=== PATIENT | female | born 2005 | race Caucasian/White ===

== ENCOUNTER → 2024-09-10 09:10 | Outpatient (CLI) | payer OTHER, SELFPAY ==
[2024-09-10 15:02] LABS: Urine N gonorrhoeae NOT DETECTED
[2024-09-10 15:11] LABS: Urine Chlamydia DETECTED
== END ==
PROVIDERS: Visit Provider Student in an Organized Health Care Education/Training Program
DX: Z11.3 Encounter for screening for infections with a predominantly sexual mode of transmission (principal)
CPT/HCPCS: 87491; 87591

== ENCOUNTER 2024-10-01 10:11 | Emergency (ER) | payer OTHER, SELFPAY ==
--- NOTE | 2024-10-01 10:15 | EKG_ITS ---
[address] [address] Test Date: 2024-10-01 Pat Name: Pamela Martinez Department: Room: Gender: Female Computer Applications Instructor: TSERING : 2005 Requested By: Order Number: [id number] Reading MD: Davion Morales MD Measurements Intervals [place] Rate: 60 P: 44 OR: 144 QRS: 44 QRSD: 72 T: 31 QT: 426 QTc: 426 Interpretive Statements Normal sinus rhythm Electronically Signed On 10-02-2024 6:50:21 PST by Davion Morales MD
[2024-10-01 10:19] VITALS: BP 119/73; PULSE 67; RESP 18; TEMP 36.2; O2SAT 100
[2024-10-01 10:24] VITALS: PULSE 65; RESP 17; O2SAT 100
[2024-10-01 10:28] LABS: Add Manual Diff / Slide Review NO; Basophils Absolute Auto 0 /uL (0-100); Basophils Percent Auto 0.3 % (0-2); Eosinophils Absolute Auto 200 /uL (0-450); Eosinophils Percent Auto 3.2 % (2-4); Hematocrit 33.9 % (36-46); Hemoglobin 11.2 g/dL (12.0-16.0); Lymphocytes Absolute Auto 1900 /uL (1100-4500); Lymphocytes Percent Auto 31.4 % (25-40); Mean Corpuscular HGB Conc 33.2 % (30-36); Mean Corpuscular Hemoglobin 27.2 PG (26-34); Mean Corpuscular Volume 81.7 fL (80-100); Monocytes Absolute Auto 400 /uL (0-900); Neutrophils Absolute Auto 3600 /uL (1500-7000); Neutrophils Percent Auto 59.1 % (50-75); Platelet Count 199 X10^3/uL (150-400); Red Blood Cell Count 4.14 X10^6/uL (4.0-5.2); Red Cell Distribution Width 15.9 % (11.6-14.8); White Blood Cell Count 6.1 X10^3/uL (4.5-11.0)
[2024-10-01 10:30] VITALS: BP 107/61; PULSE 62; RESP 13; O2SAT 100
[2024-10-01 10:40] LABS: BUN Creatinine Ratio 13.8 (6-22); Blood Urea Nitrogen 8 mg/dL (7-17); Calcium 9.3 mg/dL (8.4-10.2); Carbon Dioxide 24 mmol/L (22-32); Chloride 107 mmol/L (98-107); Estimated Glomerular Filt Rate > 60 mL/min (>60); Glucose 72 mg/dL (70-100); HEMOLYSIS < 15 (0-50); Potassium 3.7 mmol/L (3.4-5.1); Sodium 138 mmol/L (137-145)
--- NOTE | 2024-10-01 10:52 | ED_ITS ---
HPI - Chest Pain General Chief Complaint: Chest Pain Stated Complaint: Mild Chest pain , Has SVT Time Seen by Provider: 10/01/24 10:15 Source: patient Mode of arrival: Ambulatory Limitations: no limitations History of Present Illness HPI narrative: Patient is a 19-year-old female. She was a at approximately 11 weeks EGA. She has a 4-1/2-month-old child at home. She states during her 1st she had episodes of SVT. She was also found to be anemic. During her 1st she was she had what sounds like an echocardiogram and was told that she ?had a problem with 1 of her heart valves? she stated that there was supposed to be more workup after her ended however she became once again. She was here for evaluation of having palpitations and lightheadedness specifically with standing. He has been worsening over the past couple days. Does report some mild chest pain with the symptoms. She does take metoprolol on a daily basis. She has a follow-up with her OB provider in approximately 1 week. Related Data Home Medications Medication Instructions Recorded Confirmed [id number] 400 mcg-om3 35 mg-dha 25 tab PO 09/06/24 09/10/24 mg-epa 5 mg-fish oil chewable tablet ferrous sulfate 325 mg (65 mg 325 mg PO BID 09/06/24 09/10/24 iron) tablet (Feosol) metoprolol tartrate 25 mg tablet 25 mg PO DAILY 09/06/24 09/10/24 Previous Rx's Medication Instructions Recorded azithromycin 1 gram oral packet 1 g PO ONCE #1 ea 09/10/24 Allergies Allergy/AdvReac Type Severity Reaction Status Date / Time No Known Drug Allergies Allergy Unverified 09/10/24 08:20 Review of Systems Review of Systems ROS Unobtainable: All systems reviewed & are unremarkable except as noted in HPI and below Patient History Medical History History of third degree perineal laceration hemorrhage Asthma Surgical History (Updated 09/06/24 @ 14:35 by Rosa Lynch RN) No pertinent past surgical history Family History (Updated 09/06/24 @ 14:38 by Rosa Lynch RN) Father Diabetes mellitus Gout Grandmother Diabetes mellitus Mother Uterine cancer Heart attack Adopted Brother Epilepsy Aunt Diabetes mellitus Social History marital status: number of children: 1 household members: spouse and children lives independently: Yes caregiver/support person: Yes housing: apartment pets and animals: Yes (dog) education level: college (some college) occupational status: unemployed current occupational exposures/hazards: No special axel needs: No travel history: recent (domestic only) seatbelt use: always water heater temp set < 120 deg: Yes working smoke detector in home: Yes fire extinguisher in home: Yes carbon monox detector in home: Yes firearms in home: No do you feel safe at home: Yes Smoking Status: Never smoker second hand exposure: Yes ( vapes outside) alcohol intake: former (~1-2/week when not ) during the past year weight has: other (baby only 4 months old) well-balanced diet: daily or most days daily servings fruits/ve or more times/day caffeine: No Type(s) of exercise: walking frequency: daily Smoking Status: Never smoker Exam Initial Vital Signs Initial Vital Signs: Vital Signs Temperature 97.2 F L 10/01/24 10:19 Pulse Rate 67 10/01/24 10:19 Respiratory Rate 18 10/01/24 10:19 Blood Pressure 119/73 10/01/24 10:19 Pulse Oximetry 100 10/01/24 10:19 Oxygen Delivery Method Room Air 10/01/24 10:19 Const General: cooperative, comfortable and No ill appearing HENMT Head: normal to inspection and normocephalic Resp Effort & Inspection: normal respiratory effort Auscultation: clear to auscultation bilaterally Cardio Rate: regular rate Rhythm: regular rhythm GI Inspection: normal to inspection and non-distended Skin General: no rashes or lesions noted Neuro General: patient alert, patient awake and moves all extremities Extrem General: capillary refill normal Course Orders Ordered: ED Orders 10/01/24 10:15 EKG-12 Lead Stat 10/01/24 10:20 Basic Metabolic Panel Stat Complete Blood Count AUTO DIFF Stat Vital Signs Vital signs: Vital Signs - 8 hr 10/01/24 10:19 10/01/24 10:24 10/01/24 10:30 Temperature 97.2 F L Pulse Rate 67 65 Respiratory Rate 18 17 Blood Pressure 119/73 107/61 Pulse Oximetry 100 100 Oxygen Delivery Method Room Air 10/01/24 10:30 10/01/24 11:00 10/01/24 11:00 Temperature Pulse Rate 62 64 Respiratory Rate 13 15 Blood Pressure 112/69 Pulse Oximetry 100 97 Oxygen Delivery Method MDM - Chest Pain Lab Data Attestation: I reviewed the patient's lab results. 10/01/24 10:20 10/01/24 10:20 Labs: Lab Results 10/01/24 Range/Units 10:20 WBC 6.1 (4.5-11.0) X10^3/uL RBC 4.14 (4.0-5.2) X10^6/uL Hgb 11.2 L (12.0-16.0) g/dL Hct 33.9 L (36-46) % MCV 81.7 (80-100) fL MCH 27.2 (26-34) PG MCHC 33.2 (30-36) % RDW 15.9 H (11.6-14.8) % Plt Count 199 (150-400) X10^3/uL Neut % (Auto) 59.1 (50-75) % Lymph % (Auto) 31.4 (25-40) % [place] % (Auto) 6.0 (3-14) % Eos % (Auto) 3.2 (2-4) % Baso % (Auto) 0.3 (0-2) % Neut # (Auto) 3600 (9579-1911) /uL Lymph # (Auto) 1900 (0743-0239) /uL [place] # (Auto) 400 (0-900) /uL Eos # (Auto) 200 (0-450) /uL Baso # (Auto) 0 (0-100) /uL Sodium 138 (137-145) mmol/L Potassium 3.7 (3.4-5.1) mmol/L Chloride 107 (98-107) mmol/L Carbon Dioxide 24 (22-32) mmol/L BUN 8 (7-17) mg/dL Creatinine 0.58 (0.52-1.04) mg/dL Estimated GFR > 60 (>60) mL/min BUN/Creatinine Ratio 13.8 (6-22) Glucose 72 (70-100) mg/dL Calcium 9.3 (8.4-10.2) mg/dL ECG Data Attestation: I personally reviewed and interpreted this ECG as follows: Interpretation: Sinus rhythm Ventricular rate is 60 Normal axis Normal QRS Normal QTC No ST T wave changes MDM Narrative Medical decision making narrative: Patient was technically anemic however not in any particular level that would make me concerned about a blood transfusion and also not a level where I would state that it was what is causing her lightheadedness. She was sinus rhythm here in the EKG. She was on metoprolol 25 mg that she takes at night because it makes her sleepy. She ambulated around the emergency department without becoming tachycardic or lightheaded. She has a follow-up with her OB doctor in 1 week from now. Recommended that she keep that appointment and discuss with her primary doctor about potentially increasing her metoprolol or getting a Holter monitor. She will continue with her vitamins and iron supplements. She was given return precautions. She expressed understanding and agreement Discharge Plan Departure Patient Disposition: Home Clinical Impression: Palpitations Instructions: DI for Palpitations Activity Restrictions/Additional Instructions: Recommend that you continue to take all of your medications as directed to include a vitamins and your iron supplements. Keep your appointment with your OB provider scheduled for 1 week from now. Talk with your OB provider about the indications for a Holter monitor or if you should change any of your medications. Return to the emergency department for new symptoms. Prescriptions: No Action azithromycin 1 gram packet 1 g PO ONCE Qty: 1 0RF [id number] oil 400 mcg-35 mg -25 mg-5 mg tablet,chewable PO ferrous sulfate [Feosol] 325 mg (65 mg iron) tablet 325 mg PO BID metoprolol tartrate 25 mg tablet 25 mg PO DAILY Referrals: ProviderАнна [Primary Care Provider] - Stand Alone Forms: Patient Portal/API/Survey
[2024-10-01 11:00] VITALS: BP 112/69; PULSE 64; RESP 15; O2SAT 97
--- NOTE | 2024-10-01 11:01 | PC.NURSE ---
Pt ambulated around unit on monitors with RN, pt reports no new symptoms. HR in 90s while ambulating
[2024-10-01 11:26] VITALS: PULSE 64; RESP 18; TEMP 36.4; O2SAT 99
== END 2024-10-01 11:27 | disposition home or self-care (01) ==
PROVIDERS: Emergency Provider Emergency Medicine
DX: O26.891 Other specified pregnancy related conditions, first trimester (principal); R00.2 Palpitations; Z3A.11 11 weeks gestation of pregnancy
CPT/HCPCS: 36415; 80048; 85025; 93005; 93010; 99283; 99284

== ENCOUNTER → 2024-10-09 15:37 | Outpatient (CLI) | payer OTHER, SELFPAY ==
[2024-10-09 16:37] LABS: Add Manual Diff / Slide Review NO; Basophils Absolute Auto 0 /uL (0-100); Basophils Percent Auto 0.2 % (0-2); Eosinophils Absolute Auto 200 /uL (0-450); Eosinophils Percent Auto 3.1 % (2-4); Hematocrit 30.7 % (36-46); Hemoglobin 10.4 g/dL (12.0-16.0); Lymphocytes Absolute Auto 1900 /uL (1100-4500); Lymphocytes Percent Auto 31.1 % (25-40); Mean Corpuscular Hemoglobin 27.7 PG (26-34); Mean Corpuscular Volume 81.5 fL (80-100); Monocytes Absolute Auto 400 /uL (0-900); Monocytes Percent Auto 6.1 % (3-14); Neutrophils Absolute Auto 3700 /uL (1500-7000); Neutrophils Percent Auto 59.5 % (50-75); Platelet Count 198 X10^3/uL (150-400); Red Blood Cell Count 3.77 X10^6/uL (4.0-5.2); Red Cell Distribution Width 15.3 % (11.6-14.8); White Blood Cell Count 6.3 X10^3/uL (4.5-11.0)
[2024-10-09 16:51] LABS: Natera Collection Specimen Collected
[2024-10-09 18:09] LABS: Urine N gonorrhoeae NOT DETECTED
[2024-10-09 18:21] LABS: Urine Chlamydia NOT DETECTED
[2024-10-11 05:13] LABS: RPR Screen Non Reactive (Non Reactive)
[2024-10-11 13:39] LABS: Varicella IgG Antibody Non Reactive (Non Reactive)
[2024-10-11 15:34] LABS: Hepatitis B Surface Antigen NEGATIVE s/c (NEGATIVE); Rubella Antibody IgG 9.1 IU/mL (>15)
[2024-10-11 15:50] LABS: HIV 1 & 2 Ab/Ag 4th Gen Combo NEGATIVE (NEGATIVE); Hep C Virus Ab w/Reflex Quant NEGATIVE s/c (NEGATIVE)
== END ==
PROVIDERS: Referring Provider Student in an Organized Health Care Education/Training Program; Visit Provider Student in an Organized Health Care Education/Training Program
DX: O98.819 Other maternal infectious and parasitic diseases complicating pregnancy, unspecified trimester (principal); A74.9 Chlamydial infection, unspecified; Z36.0 Encounter for antenatal screening for chromosomal anomalies
CPT/HCPCS: 36415; 80055; 86787; 86803; 86850; 86900; 86901; 87086; 87389; 87491; 87591

== ENCOUNTER → 2024-10-11 13:34 | Outpatient (CLI) | payer OTHER, SELFPAY | PROVIDERS: Referring Provider Student in an Organized Health Care Education/Training Program; Visit Provider Student in an Organized Health Care Education/Training Program | DX: Z86.79 Personal history of other diseases of the circulatory system (principal); R00.2 Palpitations; R42 Dizziness and giddiness | CPT/HCPCS: 93246; 93248 ==

== ENCOUNTER → 2024-12-06 07:39 | Outpatient (CLI) | payer OTHER, SELFPAY ==
--- NOTE | 2024-12-06 07:40 | DI.US.S_ITS ---
PROCEDURE: US OB >= 14 WEEKS FETUS INDICATIONS: 20 week anatomy scan OUTSIDE/PRIOR DATING DATA: Last menstrual period (LMP): 07/15/2024. LMP-based estimated date of delivery (ELAINA): 04/21/2025 First dating scan (date and location): 09/10/2024. Estimated date of delivery (ELAINA) from first dating scan: 04/21/2025. The calculations are made using the working ELAINA of 04/21/2025. TECHNIQUE: Real-time scanning was performed of the fetus, with image documentation and biometric measurements. Endovaginal scanning: No COMPARISON: None. FINDINGS: General: A single living intrauterine gestation is present. Presentation: Vertex. Placenta: Placental position is anterior , without previa. Amniotic fluid index: 9.8 cm, normal range is 5-24 cm. Single deepest vertical pocket is 3.1 cm. heart rate: 51-135 beats per minute. Maternal cervical canal: 3.7 cm long. Normal lower limit is 2.5 cm. biometrics: Biparietal diameter: 4.5 cm, 19 week 4 day Head circumference: 16.8 cm, 19 week 3 day Abdominal circumference: 14.6 cm, 19 week 6 day Femur length: 3.1 cm, 19 week 4 day Clinically estimated gestational age: 19 week 4 day Composite gestational age from present scan: 20 week 4 day Estimated weight and percentile: 308 g, 10 percentile Anatomic survey: Neuro: Ventricles are non-dilated at less than 10 mm. Cisterna magna is normal at 3-11 mm. Cerebellum is normal in size and morphology. Nuchal skin fold: Normal at less than 6 mm between 14-21 weeks gestational age. Face: Nose and lips, facial profile are normal. Spine: No evidence for spina bifida. Heart: 4-chambered heart is present, with normal ventricular outflow tracts. Diaphragm: Diaphragm is intact. Stomach: Left-sided stomach is present. Kidneys: No hydronephrosis. Normal is less than 5 mm in 2nd trimester, less than 7 mm in 3rd trimester. Cord: 3-vessel cord has orthotopic insertion. Bladder: Normal in size. Extremities: All 4 extremities identified. IMPRESSION: Single live intrauterine consistent with 20 week 4 day gestation by current ultrasound EFW 308 g, 10th percentile Episodic bradycardia down to 51 beats per minute Approved by: Tim Butler M.D. on 12/06/2024 at 18:18
== END ==
PROVIDERS: Referring Provider Student in an Organized Health Care Education/Training Program; Visit Provider Student in an Organized Health Care Education/Training Program
DX: Z34.82 Encounter for supervision of other normal pregnancy, second trimester (principal); Z3A.20 20 weeks gestation of pregnancy
CPT/HCPCS: 76811

== ENCOUNTER → 2025-01-16 09:07 | Outpatient (CLI) | payer OTHER, SELFPAY ==
[2025-01-16 11:17] LABS: Hematocrit 25.7 % (36-46); Hemoglobin 8.5 g/dL (12.0-16.0)
[2025-01-16 11:29] LABS: HEMOLYSIS < 15 (0-50); Iron 31 ug/dL (37-170)
[2025-01-16 11:30] LABS: GTT (PREG) 1 Hour PP 50gm Dose 102 mg/dL (76-139)
[2025-01-16 11:39] LABS: Percent Iron Saturation 6 % (15-50); Total Iron Binding Capacity 494 ug/dL (265-497); Transferrin 427 mg/dL (206-381)
[2025-01-16 12:05] LABS: Ferritin 4 ng/mL (6-137)
[2025-01-16 12:31] LABS: Urine N gonorrhoeae NOT DETECTED
[2025-01-16 12:35] LABS: Urine Chlamydia NOT DETECTED
== END ==
PROVIDERS: Referring Provider Student in an Organized Health Care Education/Training Program; Visit Provider Student in an Organized Health Care Education/Training Program
DX: O98.819 Other maternal infectious and parasitic diseases complicating pregnancy, unspecified trimester (principal); Z13.0 Encounter for screening for diseases of the blood and blood-forming organs and certain disorders involving the immune mechanism; O99.019 Anemia complicating pregnancy, unspecified trimester; Z13.1 Encounter for screening for diabetes mellitus; A74.9 Chlamydial infection, unspecified
CPT/HCPCS: 36415; 82728; 82950; 83540; 83550; 85014; 85018; 87491; 87591

== ENCOUNTER → 2025-02-26 11:17 | Outpatient (CLI) | payer OTHER, SELFPAY ==
[2025-02-26 12:10] LABS: Add Manual Diff / Slide Review NO; Basophils Absolute Auto 0 /uL (0-100); Basophils Percent Auto 0.2 % (0-2); Eosinophils Absolute Auto 300 /uL (0-450); Eosinophils Percent Auto 3.2 % (2-4); Hematocrit 33.2 % (36-46); Lymphocytes Absolute Auto 1800 /uL (1100-4500); Lymphocytes Percent Auto 19.7 % (25-40); Mean Corpuscular HGB Conc 33.1 % (30-36); Mean Corpuscular Hemoglobin 28.1 PG (26-34); Monocytes Absolute Auto 500 /uL (0-900); Monocytes Percent Auto 5.3 % (3-14); Neutrophils Absolute Auto 6600 /uL (1500-7000); Neutrophils Percent Auto 71.6 % (50-75); Platelet Count 143 X10^3/uL (150-400); White Blood Cell Count 9.2 X10^3/uL (4.5-11.0)
[2025-02-26 12:22] LABS: Anisocytosis 1+
== END ==
PROVIDERS: Referring Provider Obstetrics & Gynecology; Visit Provider Obstetrics & Gynecology
DX: O99.019 Anemia complicating pregnancy, unspecified trimester (principal)
CPT/HCPCS: 36415; 85025

== ENCOUNTER → 2025-03-12 08:54 | Outpatient (CLI) | payer OTHER, SELFPAY | PROVIDERS: Visit Provider Student in an Organized Health Care Education/Training Program | DX: O99.019 Anemia complicating pregnancy, unspecified trimester (principal); R39.9 Unspecified symptoms and signs involving the genitourinary system | CPT/HCPCS: 87086 ==

== ENCOUNTER → 2025-03-12 09:10 | Outpatient (CLI) | payer OTHER, SELFPAY ==
[2025-03-12 10:14] LABS: Add Manual Diff / Slide Review NO; Basophils Absolute Auto 0 /uL (0-100); Basophils Percent Auto 0.3 % (0-2); Eosinophils Absolute Auto 200 /uL (0-450); Eosinophils Percent Auto 2.8 % (2-4); Hematocrit 31.6 % (36-46); Hemoglobin 10.7 g/dL (12.0-16.0); Lymphocytes Absolute Auto 1500 /uL (1100-4500); Lymphocytes Percent Auto 19.8 % (25-40); Mean Corpuscular HGB Conc 33.9 % (30-36); Mean Corpuscular Hemoglobin 28.7 PG (26-34); Mean Corpuscular Volume 84.7 fL (80-100); Monocytes Absolute Auto 400 /uL (0-900); Neutrophils Absolute Auto 5400 /uL (1500-7000); Neutrophils Percent Auto 72.1 % (50-75); Platelet Count 122 X10^3/uL (150-400); Red Blood Cell Count 3.73 X10^6/uL (4.0-5.2); Red Cell Distribution Width 21.4 % (11.6-14.8); White Blood Cell Count 7.5 X10^3/uL (4.5-11.0)
[2025-03-12 10:24] LABS: Anisocytosis 1+
[2025-03-12 10:54] LABS: Transferrin 398 mg/dL (206-381)
[2025-03-12 11:24] LABS: Ferritin 24 ng/mL (6-137)
== END ==
PROVIDERS: Referring Provider Student in an Organized Health Care Education/Training Program; Visit Provider Student in an Organized Health Care Education/Training Program
DX: O99.019 Anemia complicating pregnancy, unspecified trimester (principal); R39.9 Unspecified symptoms and signs involving the genitourinary system
CPT/HCPCS: 36415; 82728; 84466; 85025; 87086

== ENCOUNTER → 2025-03-26 09:34 | Outpatient (CLI) | payer OTHER, SELFPAY ==
[2025-03-27 13:31] LABS: Strep Grp B PCR NEG for Grp B Strep
[2025-03-28 14:09] LABS: Candida species Positive (Negative); Gardnerella vaginalis Positive (Negative); Trichomoas vaginalis Negative (Negative)
== END ==
PROVIDERS: Visit Provider Student in an Organized Health Care Education/Training Program
DX: Z36.85 Encounter for antenatal screening for Streptococcus B (principal); N89.8 Other specified noninflammatory disorders of vagina
CPT/HCPCS: 87480; 87510; 87653; 87660

== ENCOUNTER 2025-04-12 18:23 | Observation (INO) | payer OTHER, SELFPAY ==
--- NOTE | 2025-04-12 21:13 | PM.OBTRLD ---
Visit Information Visit Information Date of evaluation: 04/12/25 Primary OB Provider: Nancy Johnson On-call OB Provider: Nancy Johnson Reason for Evaluation: Yes rule out labor Comments/Additional reasons for admission: Pt came in painfully [place]. Denied leaking fluid or vaginal bleeding. Vital Signs Vital Signs: BP 121/64; P 99; T 36.2 [facility] Medical History (Updated 04/12/25 @ 21:16 by Nancy Johnson DO) Cystic fibrosis carrier Scoliosis SVT (supraventricular tachycardia) History of third degree perineal laceration hemorrhage Asthma Surgical History (Updated 09/06/24 @ 14:35 by Rosa Lynch, RN) No pertinent past surgical history Family History (Updated 09/06/24 @ 14:38 by Rosa Lynch RN) Father Diabetes mellitus Gout Grandmother Diabetes mellitus Mother Uterine cancer Heart attack Adopted Brother Epilepsy Aunt Diabetes mellitus Social History marital status: number of children: 1 household members: spouse and children lives independently: Yes caregiver/support person: Yes housing: apartment pets and animals: Yes (dog) education level: college (some college) occupational status: unemployed current occupational exposures/hazards: No special axel needs: No travel history: recent (domestic only) seatbelt use: always water heater temp set < 120 deg: Yes working smoke detector in home: Yes fire extinguisher in home: Yes carbon monox detector in home: Yes firearms in home: No do you feel safe at home: Yes second hand exposure: Yes ( vapes outside) alcohol intake: former (~1-2/week when not ) during the past year weight has: other (baby only 4 months old) well-balanced diet: daily or most days daily servings fruits/ve or more times/day caffeine: No Type(s) of exercise: walking frequency: daily Review of Systems Review of Systems ROS: Yes All systems reviewed with the patient and are negative except as otherwise documented Exam Const General: comfortable and No acute distress Resp Effort & Inspection: normal respiratory effort and able to speak in complete sentences Neuro Cognition: normal cognition Speech: speech normal Psych Mood: congruent mood Affect: normal affect Evaluation Evaluation Baseline heart rate: 125 Variability: Moderate (6-25) monitor accelerations: Present Monitor Decelerations: Absent Contraction Frequency (minutes): 5 Category of Tracing: Reactive Cervical dilation (cm): 3 Cervical effacement (%): 60 station: -3 Diagnosis, Plan/Disposition Final Diagnosis (1) False labor after 37 completed weeks of gestation: Status: Acute (2) 38 weeks gestation of : Status: Acute Plan/Disposition Plan: 19yo at 38+5wks presented to triage for rule-out labor. Patient remained unchanged after 2hrs. -discharged to home, with plan for IOL next week OB Disposition: home
== END 2025-04-12 21:05 | disposition home or self-care (01) ==
LOC: LABOR 18:25
PROVIDERS: Admitting Provider Student in an Organized Health Care Education/Training Program; Referring Provider Student in an Organized Health Care Education/Training Program; Visit Provider Student in an Organized Health Care Education/Training Program
DX: O47.1 False labor at or after 37 completed weeks of gestation (principal); Z3A.38 38 weeks gestation of pregnancy
CPT/HCPCS: 59025; G0378; G0379

== ENCOUNTER 2025-04-16 06:31 | Inpatient (IN) | payer OTHER, SELFPAY ==
--- NOTE | 2025-04-16 08:01 | P.HPOB_ITS ---
OB HPI Date/Time Date of admission: 04/16/25 Date Patient Seen: 04/16/25 Time Patient Seen: 07:45 History of Present Condition Chief complaint: INDUCTION ELAINA Calculator 2 Estimated Delivery Date Method Current WG Current Estimate 04/21/25 LMP (Certain) 39w 2d Other Estimates 04/24/25 Ultrasound #1 38w 6d : 2 Para: 1 Narrative: 19-year-old at 39 +2 weeks' presenting today for induction of labor due to multiple risk factors. She is continued to have painful contractions over the weekend, denies leaking fluid or vaginal bleeding. Is feeling regular movement. 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--> [ ] FOB testing (patient reports negative, need records) SVT--> on metoprolol, reports increased episodes during last (has never been cardioverted or received adenosine); ER visit for palpitations [ x] Zio patch- neg; seen by MFM (see consult notes regarding SVT) Chlamydia in --> tx'd at 8wks EGA; [ x] CHAI at 12wks- neg; [ x] rescreen 3rd trimester- NEG Anemia--> on oral iron supplement; [ x] repeat 28wks with ferritin/iron (8.5/25.7, low iron); [x] iron infusions; [ x] repeat CBC 32wks; [x ] scheduled for 2nd round IV iron EFW 10%ile at anatomy with intermittent bradycardia--> [x ] MFM referral; normal growth 01/01/25 at [facility]; follow-up growth sonos scheduled with MFM (NORMAL) Hx of 3rd degree perineal laceration--> [x ] discuss option of primary (discussed 03/12) Hx of macrosomia with PPH (received transfusion) Rubella nonimmune Close interval --> last delivery 04/2024, not [place] (active duty, 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) Assigned to Alex Indications Indication for induction OB: medical complication Preadmission Labs Last OB Lab Results: 2 Blood Type A Positive 10/09/24, 15:51 Antibody Screen Negative 10/09/24, 15:51 Hct, (36-46) 34.2 % L Today, 07:40 Hgb, (12.0-16.0) 11.7 g/dL L Today, 07:40 Hep Bs Antigen, (NEGATIVE) Negative s/c 10/09/24, 15: 51 Hepatitis C Antibody, (NEGATIVE) Negative s/c 4, 15:51 Rubella Antibody, (>15) 9.1 IU/mL L 10/09/24, 15:51 VZV IgG Antibody, (Non Reactive) Non reactive 4, 15:51 Glucose 1 Hr 50 gm, (76-139) 102 mg/dL 01/16/25, 1 0:31 Group B Strep (PCR) Neg for grp b strep 03/26/25, 09:34 Glucose Tolerance Testin hr (negative) -: Chlamydia screen: negative, Gonorrhea screen: negative and Urine: negative -: PAP smear: Normal Genetic Screens: Cell-free DNA: Normal External Labs -: Urine: negative Prior (ies) Past Pregnancies Del. Date GA/Weeks Labor Lgth Wt Sex Route Outcome Anesthesia Place Delv Breastfeed Preg Comp Name 05/12/24 39.4 3 9 lb Male vaginal live - full term epidural ZAFAR [place] 4 weeks, inadequate production macrosomia hemorrhage [place] Delivery Date: 05/12/24 Last Updated by: Rosa Lynch RN 3rd degree laceration, sutures did not dissolve and needed removal Evaluation Evaluation Baseline heart rate: 130 Variability: Moderate (6-25) monitor accelerations: Present Monitor Decelerations: Absent Contraction Frequency (minutes): 5 Status: Category l Dilation (cm): 3 Effacement (%): 50 station: -3 Position of cervix: mid Consistency: [facility] Medical History (Updated 04/12/25 @ 21:16 by Nancy Johnson DO) Cystic fibrosis carrier Scoliosis SVT (supraventricular tachycardia) History of third degree perineal laceration hemorrhage Asthma Surgical History (Updated 09/06/24 @ 14:35 by Rosa Lynch RN) No pertinent past surgical history Family History (Updated 09/06/24 @ 14:38 by Rosa Lynch RN) Father Diabetes mellitus Gout Grandmother Diabetes mellitus Mother Uterine cancer Heart attack Adopted Brother Epilepsy Aunt Diabetes mellitus Social History marital status: number of children: 1 household members: spouse and children lives independently: Yes caregiver/support person: Yes housing: apartment pets and animals: Yes (dog) education level: college (some college) occupational status: unemployed current occupational exposures/hazards: No special axel needs: No travel history: recent (domestic only) seatbelt use: always water heater temp set < 120 deg: Yes working smoke detector in home: Yes fire extinguisher in home: Yes carbon monox detector in home: Yes firearms in home: No do you feel safe at home: Yes second hand exposure: Yes ( vapes outside) alcohol intake: former (~1-2/week when not ) during the past year weight has: other (baby only 4 months old) well-balanced diet: daily or most days daily servings fruits/ve or more times/day caffeine: No Type(s) of exercise: walking frequency: daily Meds Home Medications and Allergies Home Medications ?Medication ?Instructions ?Recorded ?Confirmed ?Type [id number] 400 mcg-om3 35 mg-dha 25 tab PO 09/06/2403/24 History mg-epa 5 mg-fish oil chewable tablet ferrous sulfate 325 mg (65 mg 325 mg PO BID 09/06/24 0 04/09/25 History iron) tablet (Feosol) metoprolol tartrate 25 mg tablet 25 mg PO DAILY 04/09/25 History azithromycin 1 gram oral packet 1 g PO ONCE #1 ea 08/2404/09/25 Rx Allergies Allergy/AdvReac Type Severity Reaction Status Date / Time No Known Drug Allergies Allergy Unverified 04/09/25 09:08 Review of Systems Review of Systems ROS: Yes All systems reviewed with the patient and are negative except as otherwise documented OB Exam Vital signs Blood Pressure: 117/68 Pulse Rate: 79 Respiratory Rate: 17 Temperature: 96.6 F HENMT Head: normocephalic Resp Effort & Inspection: normal respiratory effort and able to speak in complete sentences Extremities Lower extremity: Yes normal to inspection GI Other: gravid, nontender Objective Labs 04/16/25 07:40 Assessment and Plan Assessment and Plan Assessment and Plan narrative: 19yo at 39+2wks admitted for induction of labor. -CBC, T&S on admission -continuous EFM -epidural PRN -GBS neg, ppx not indicated -PPH risk high, 2 IV's placed, blood products on hand, plan for prophylactic TXA with delivery -VTE risk low, SCDs with epidural -anticipate L&D Counseling: Common procedures and interventions related to the management of were explained to the patient, including assistance at vaginal delivery with episiotomy, vacuum, or forceps, use of medications to stop premature labor or induce labor, and assessment including auscultation (listening to the heart), use of electronic monitoring (external and / or internal), and use of scalp electrode and/or intrauterine pressure catheter.? It was also explained that approximately 20-30% of mothers have a need for delivery during their labor course. It was explained to the patient that , labor and delivery are ordinarily normal physiological events and can be expected to provide a healthy outcome for mother and baby in the majority of cases. However, there are complications that may arise during , labor, and delivery, such as: hemorrhage requiring administration of blood and/or blood products, surgical intervention, possibly even hysterectomy for life-saving purposes; possibility of infection requiring antibiotics, prolonged hospital stay, and rarely surgical intervention; possibility of blood clots;? possibility of retained products of conception requiring surgical intervention;? possibility of serious tears or injury to the vagina, cervix, perineum, or rectum;? possibility of injury to abdominal structures if delivery is required;? and rarely maternal or may occur. Time-Based Coding :: [30min] spent with patient and on the chart (including review of chart, obtaining history, exam, reviewing outside data, placing orders, documenting exam and treatment plan, and counseling patient) on [04/16/25].
[2025-04-16 08:16] LABS: Add Manual Diff / Slide Review NO; Basophils Absolute Auto 0 /uL (0-100); Basophils Percent Auto 0.3 % (0-2); Eosinophils Absolute Auto 200 /uL (0-450); Eosinophils Percent Auto 1.8 % (2-4); Hematocrit 34.2 % (36-46); Hemoglobin 11.7 g/dL (12.0-16.0); Lymphocytes Absolute Auto 1600 /uL (1100-4500); Lymphocytes Percent Auto 17.8 % (25-40); Mean Corpuscular HGB Conc 34.2 % (30-36); Mean Corpuscular Hemoglobin 29.2 PG (26-34); Mean Corpuscular Volume 85.3 fL (80-100); Monocytes Absolute Auto 600 /uL (0-900); Monocytes Percent Auto 6.3 % (3-14); Neutrophils Absolute Auto 6800 /uL (1500-7000); Neutrophils Percent Auto 73.8 % (50-75); Platelet Count 118 X10^3/uL (150-400); Red Blood Cell Count 4.01 X10^6/uL (4.0-5.2); White Blood Cell Count 9.2 X10^3/uL (4.5-11.0)
[2025-04-16 08:20] VITALS: BP 117/68; PULSE 79; RESP 17; TEMP 35.9
[2025-04-16] MEDS: OXYTOCIN PREMIX 30 UNIT/500 ML PLAST..BAG IV (09:05)
[2025-04-16] MEDS: LACTATED RINGERS 1,000 ML 100 ML IV ×2 (09:06→19:46)
[2025-04-16 09:31] VITALS: BP 114/61
--- NOTE | 2025-04-16 15:30 | PM.OBPNLAB ---
Date/Time Date Patient Seen: 04/16/25 Time Patient Seen: 15:30 Pain Control Pain control: tolerating well Pelvic Exam Dilation (cm): 4 Effacement (%): 80 station: -2 Amniotic membrane status: Ruptured Contractions Pitocin rate (mU/min): 18 Contraction pattern: Regular Status status: Category l Heart Rate Baseline: 130 Monitor Accelerations: Present Monitor Decelerations: Absent Monitor Variability: Moderate Assessment and Plan Assessment: induction ongoing Plan: continuous present management Comments: 19-year-old at 39+ 2 weeks, undergoing induction of labor. AROM performed at this time, productive of minimal fluid. -continue to titrate Pitocin for affect -epidural PRN
--- NOTE | 2025-04-16 16:14 | PM.AN.REGBLK ---
[facility] Pre-procedure Procedure: Continuous Lumbar Epidural for L&D Attending OB provider: Nancy Johnson PMH/ROS narrative: 19-year-old at 39 +2 weeks' presenting today for induction of labor due to multiple risk factors. Requesting epidural for labor pain following ROM. Hx: No personal or family history of anesthesia problems. PSH/Anesthesia history narrative: See pre-op note Exam narrative: see pre-op note ASA Class: II Labs: Hct 34.2 % (36-46) L 04/16/25 07:40 Plt Count 118 X10^3/uL (150-400) L 04/16/25 07:40 Medications: Current Medications Generic Name Dose Route Start Last Admin Trade Name Freq PRN Reason Stop Dose Admin Calcium Carbonate 1,000 mg 04/16/25 07:59 Calcium Carbonate 500 Mg Tab PO Q2HR PRN Dyspepsia Carboprost Tromethamine 250 mcg 04/16/25 07:59 Carboprost 250 Mcg/Ml Ampul IM Q90M PRN Bleeding Diphenhydramine HCl 25 mg 04/16/25 10:23 Diphenhydramine 50 Mg/Ml Vial IV Q10M PRN Pruritis Ephedrine Sulfate 10 mg 04/16/25 10:23 Ephedrine 50 Mg/Ml Vial IV Q5M PRN Blood pressure decrease more than 20% of baseline. Lactated Ringer's 1,000 mls @ 100 mls/hr 04/16/25 08:00 04/16/25 09:06 Lactated Ringers IV 04/16/25 17:59 100 mls/hr CONT ANA Administration Oxytocin/Lactated Ringer's 30 unit in 500 mls @ 200 mls/hr 04/16/25 07:59 Oxytocin Premix IV CONT PRN Bleeding Protocol Tranexamic Acid 1,000 mg/ 100 mls @ 600 mls/hr 04/16/25 07:59 Sodium Chloride IV NOW PRN Bleeding Oxytocin/Lactated Ringer's 30 unit in 500 mls @ 2 mls/hr 04/16/25 08:00 04/16/25 09:05 Oxytocin Premix IV 2 milliunit/min TITRATE ANA 2 mls/hr Protocol Administration 2 MILLIUNIT/MIN FENT 2MCG/ML BUPIV 0.125% EPI 200 mcg in 100 mls @ 8 mls/hr 04/16/25 10:30 Fentanyl/Bupiv/Ns 2mcg/Ml - 0.125% EPIDURAL CONT ANA Lidocaine HCl 20 ml 04/16/25 07:59 Lidocaine 1% 20 Ml INJ INTRA-OP PRN Post Delivery Methylergonovine Maleate 0.2 mg 04/16/25 07:59 Methylergonovine 0.2 Mg Tablet PO Q6HR PRN Heavy Bleeding Methylergonovine Maleate 0.2 mg 04/16/25 07:59 Methylergonovine 0.2 Mg/Ml Vial IM NOW PRN Bleeding Misoprostol 800 mcg 04/16/25 07:59 Misoprostol 200 Mcg Tablet TN NOW PRN Bleeding Misoprostol 400 mcg 04/16/25 07:59 Misoprostol 200 Mcg Tablet SL NOW PRN Bleeding Nalbuphine HCl 2.5 mg 04/16/25 10:23 Nalbuphine 20 Mg/Ml Ampul IV Q10M PRN Pruritis Naloxone HCl 0.2 mg 04/16/25 07:59 Naloxone 0.4 Mg/Ml Vial IV Q2MIN PRN Opiate Reversal Ondansetron HCl 4 mg 04/16/25 07:59 Ondansetron 4 Mg/2 Ml Inj IV Q4HR PRN Nausea And Vomiting Oxytocin 10 unit 04/16/25 07:59 Oxytocin 10 Unit/Ml Vial IM NOW PRN Bleeding Allergies: Allergies Allergy/AdvReac Type Severity Reaction Status Date / Time No Known Drug Allergies Allergy Unverified 04/09/25 09:08 --: CSE Procedure Insertion date: 04/16/25 Insertion time: 15:31 Prep/Local: betadine x3 (Chlorhex) and 1% lidocaine Interspace: L3-L4 Patient position: sitting Needle: 17 gauge Tuohy (27ga pencan spinal needle for CSE) Loss of resistance with: saline BELLE at (cm): 7 Catheter placed at SKIN (cm): 16 Catheter in SPACE (cm): 9 Sensory level: T10 Insertion: Yes CSF, No Blood, No Paresthesia with insertion, No Paresthesia with injection and No Test dose reaction Initial Medications TEST DOSE time: 15:47 TEST DOSE: 1.5% lidocaine with epinephrine 1:200k (mL): 3 BOLUS DOSE time: 15:43 BOLUS DOSE (mL): 1 (spinal dose) BOLUS DOSE med: other (0.5% bupivacaine) Infusion INFUSION: 0.125% bupivacaine and with fentanyl 2 mcg/mL Initial rate (mL/hr): 8 (5ml q15min PCEA) Post-procedure Anesthesia date START: 04/16/25 Anesthesia time START: 15:30 Anesthesia date END: 04/16/25 Anesthesia time END: 20:45 Post-procedure Anesthesia Assessment: Yes CV function: HR/BP stable, Yes Resp function: RR/sat/airway adequate, Yes Post-op hydration adequate, Yes Pain control adequate, Yes Nausea & vomiting absent, Yes Temperature > 36 C, Yes Mental status appropriate and No Anesthesia complications
--- NOTE | 2025-04-16 17:26 | PM.OBPNLAB ---
Date/Time Date Patient Seen: 04/16/25 Time Patient Seen: 17:26 Pain Control Pain control: epidural Pelvic Exam Dilation (cm): 5 Effacement (%): 80 station: -2 Amniotic membrane status: Ruptured Contractions Pitocin rate (mU/min): 9 Contraction pattern: Regular Status status: Category l Heart Rate Baseline: 130 Monitor Accelerations: Present Monitor Decelerations: Absent Monitor Variability: Moderate Assessment and Plan Assessment: induction ongoing Plan: continuous present management Comments: repeat AROM, productive of blood-tinged fluid
[2025-04-16] MEDS: CALCIUM CARBONATE 500 MG TAB 1000 MG PO (17:32)
[2025-04-16] MEDS: ONDANSETRON 4 MG/2 ML INJ IV ×2 (18:55→21:49)
[2025-04-16] MEDS: TRANEXAMIC ACID 1,000 MG in SODIUM CHLORIDE 0.9% 100 ML 600 MG IV (20:39)
[2025-04-16] MEDS: METHYLERGONOVINE 0.2 MG/ML VIAL IM (20:47)
[2025-04-16] MEDS: miSOPROStoL 200 MCG TABLET 800 MCG PR (21:02)
[2025-04-16] MEDS: CARBOPROST 250 MCG/ML AMPUL IM (21:10)
--- NOTE | 2025-04-16 21:28 | PM.OBPRVD ---
Labor & Delivery Delivery date: 04/16/25 Delivery Time: 20:41 Intrapartal Events: None Induction method: per pitocin protocol Delivery augmentation: rupture of membranes Delivery monitor: external FHT and external uterine Route of delivery: L&D Laceration Description: Perineal - 2nd Degree Delivery repair: vicryl Quantitative Blood Loss: 1,586 Anesthesia Type: Epidural Complications: hemorrhage Narrative: The patient progressed to C/C/+2 with pitocin augmentation and epidural anesthesia. The patient was given 1g TXA prophylactically when the head was . After approximately 3 sets of maternal pushing efforts, the delivered in OA position and restituted ROT. The anterior shoulder delivered with gentle downward pressure. The posterior shoulder and rest of body delivered with ease. Pitocin bolus was immediately started, and the cord was doubly clamped and cut after a 60sec delay with the placed on maternal abdomen. The placenta delivered spontaneously and was intact with a 3-vessel cord. The fundus was noted to be firm, however the lower uterine segment was boggy. She was given 1 dose of methergine, 1 dose of hemabate, and 1000mcg of cytotec, in addition to pitocin infusion. After uterotonics took effect, uterine tone improved and bleeding slowed. Inspection of the cervix, vagina, and perineum was notable for a 2nd degree perineal laceration. Repair was performed using 3-0 Vicryl in a running, unlocked fashion. Skin was reapproximated in a running, subcuticular fashion. At the end of the repair, all tissues noted to be hemostatic. All sponges were removed from the vagina. The patient tolerated delivery well and remained in the labor room with the infant at the bedside. Immediate CBC was ordered due to hemorrhage due to uterine atony. [place] Baby 1: Infant gender: Female Presentation: vertex Placenta delivery description: Spontaneous Cord Vessel Description: 3 Vessels score (1 min): 9 score (5 min): 9 weight: 8 lb 8.44 oz Plan for aftercare: Routine care
[2025-04-16] MEDS: LOPERAMIDE 2 MG CAPSULE PO (21:45)
[2025-04-16] MEDS: CEFAZOLIN 2 GM/100 ML PREMIX 100 ML IV (22:30)
[2025-04-16 22:56] LABS: Add Manual Diff / Slide Review NO; Basophils Absolute Auto 0 /uL (0-100); Basophils Percent Auto 0.2 % (0-2); Eosinophils Absolute Auto 0 /uL (0-450); Eosinophils Percent Auto 0.3 % (2-4); Hematocrit 33.6 % (36-46); Hemoglobin 11.5 g/dL (12.0-16.0); Lymphocytes Absolute Auto 1200 /uL (1100-4500); Lymphocytes Percent Auto 9.5 % (25-40); Mean Corpuscular HGB Conc 34.4 % (30-36); Mean Corpuscular Hemoglobin 29.4 PG (26-34); Mean Corpuscular Volume 85.5 fL (80-100); Monocytes Absolute Auto 500 /uL (0-900); Monocytes Percent Auto 3.6 % (3-14); Neutrophils Absolute Auto 11000 /uL (1500-7000); Neutrophils Percent Auto 86.4 % (50-75); Platelet Count 124 X10^3/uL (150-400); Red Blood Cell Count 3.92 X10^6/uL (4.0-5.2); Red Cell Distribution Width 19.9 % (11.6-14.8); White Blood Cell Count 12.8 X10^3/uL (4.5-11.0)
[2025-04-16] MEDS: WITCH HAZEL/GLYCERIN PADS 1 EACH TOP (23:38)
[2025-04-16] MEDS: ACETAMINOPHEN 325 MG TABLET 650 MG PO (23:38)
[2025-04-16] MEDS: DERMOPLAST SPRAY 20% 60 ML 1 SPRAY TOP (23:39)
[2025-04-16] MEDS: LANOLIN OINT 7 GM 1 APPLIC TOP (23:39)
[2025-04-17] MEDS: IBUPROFEN 600 MG TABLET PO ×2 (01:35→10:01)
[2025-04-17] MEDS: METOPROLOL IR 25 MG TABLET PO (01:35)
[2025-04-17] MEDS: ACETAMINOPHEN 325 MG TABLET 650 MG PO ×2 (05:05→16:03)
[2025-04-17 06:51] LABS: Add Manual Diff / Slide Review NO; Basophils Absolute Auto 0 /uL (0-100); Basophils Percent Auto 0.4 % (0-2); Eosinophils Absolute Auto 100 /uL (0-450); Eosinophils Percent Auto 0.8 % (2-4); Hematocrit 27.2 % (36-46); Hemoglobin 9.5 g/dL (12.0-16.0); Lymphocytes Absolute Auto 1900 /uL (1100-4500); Lymphocytes Percent Auto 15.3 % (25-40); Mean Corpuscular HGB Conc 34.9 % (30-36); Mean Corpuscular Hemoglobin 29.9 PG (26-34); Mean Corpuscular Volume 85.5 fL (80-100); Monocytes Absolute Auto 1000 /uL (0-900); Monocytes Percent Auto 8.3 % (3-14); Neutrophils Absolute Auto 9300 /uL (1500-7000); Neutrophils Percent Auto 75.2 % (50-75); Platelet Count 110 X10^3/uL (150-400); Red Blood Cell Count 3.19 X10^6/uL (4.0-5.2); Red Cell Distribution Width 19.5 % (11.6-14.8); White Blood Cell Count 12.4 X10^3/uL (4.5-11.0)
[2025-04-17 16:03] VITALS: TEMP 36.8
[2025-04-17] MEDS: PRENATAL VIT,CALC/IRON/FOLIC 1 TABLET 1 TAB PO (16:03)
[2025-04-17] MEDS: FERROUS SULFATE 325 MG TABLET PO (16:06)
== END 2025-04-17 19:10 | disposition home or self-care (01) | DRG 806 ==
PROVIDERS: Admitting Provider Student in an Organized Health Care Education/Training Program; Referring Provider Student in an Organized Health Care Education/Training Program; Visit Provider Student in an Organized Health Care Education/Training Program
DX: O99.02 Anemia complicating childbirth (principal); O72.0 Third-stage hemorrhage; Z37.0 Single live birth; O70.1 Second degree perineal laceration during delivery; Z3A.39 39 weeks gestation of pregnancy
CPT/HCPCS: 36415; 59050; 85025; 86850; 86900; 86901; G0379; J0690; J2210; J2405; J2590; S0191